=== PATIENT | male | born 2000 | race Caucasian/White ===

== ENCOUNTER 2018-10-10 16:36 | Emergency (ER) | payer OTHER ==
[~2018-10-10] VITALS: Wt 61.2 kg
[2018-10-10] MEDS ORDERED: Motrin,Rufen800 MG PO (18:23)
== END 2018-10-10 18:30 | disposition home or self-care (01) ==
LOC: ED 16:36
DX: S16.1XXA Strain of muscle, fascia and tendon at neck level, initial encounter (principal); S70.01XA Contusion of right hip, initial encounter; M25.511 Pain in right shoulder; R51 Headache; V43.62XA Car passenger injured in collision with other type car in traffic accident, initial encounter; Y93.89 Activity, other specified; Y92.488 Other paved roadways as the place of occurrence of the external cause; Y99.8 Other external cause status